=== PATIENT | male | born 1955 | race Caucasian/White ===

== ENCOUNTER 2020-08-13 14:15 | Emergency (ER) | payer OTHER ==
[2020-08-13] MEDS ORDERED: SODIUM CHLORIDE 0.9% 1,000 ML IV STA (14:32)
[2020-08-13] MEDS ORDERED: METOCLOPRAMIDE 10 MG/2 ML VIAL IVP STA (14:32)
--- NOTE | 2020-08-13 14:32 | ED Physician Documentation ---
PD HPI ABD PAIN - Stated complaint Stated Complaint: VOMITING/NAUSEA - Chief complaint Chief Complaint: Abd Pain - History obtained from History obtained from: Patient - Additional information Additional information: 64-year-old gentleman with recent diagnosis of non-small cell lung cancer started chemotherapy 4 days ago. Over the last 2 days he has had severe nausea and vomiting despite Compazine and Zofran orally. There is really not much pain. There is no blood in the vomitus. He hasn't had a bowel movement in a few days but doesn't feel like he is constipated, just that there is nothing in him. No fevers. Review of Systems Ten Systems: 10 systems reviewed and negative Constitutional: reports: Fatigue Cardiac: denies: Chest pain / pressure, Palpitations Respiratory: denies: Dyspnea, Cough PD PAST MEDICAL HISTORY - Present Medications Home Medications: Ambulatory Orders Medication Instructions Recorded Confirmed Metoclopramide [Reglan] 10 mg PO Q6H PRN #20 tablet 08/13/20 Ondansetron Odt [Zofran Odt] 8 mg PO Q6HR 08/13/20 08/13/20 Prochlorperazine Maleate 10 mg PO Q6HR 08/13/20 08/13/20 [Compazine] - Allergies Allergies/Adverse Reactions: Allergies Allergy/AdvReac Type Severity Reaction Status Date / Time No Known Drug Allergies Allergy Verified 08/13/20 14:25 PD ED PE NORMAL - Vitals Vital signs reviewed: Yes - General General: Alert and oriented X 3, No acute distress - HEENT HEENT: Pharynx benign - Neck Neck: Supple, no meningeal sign, No bony TTP - Cardiac Cardiac: RRR, No murmur - Respiratory Respiratory: No respiratory distress, Clear bilaterally - Abdomen Abdomen: Non tender - Back Back: No CVA TTP, No spinal TTP - Derm Derm: Normal color, Warm and dry - Extremities Extremities: No edema, No calf tenderness / cord - Neuro Neuro: Alert and oriented X 3, Normal speech Results - Vitals Vitals: Vital Signs - 24 hr 08/13/20 08/13/20 14:18 15:51 Temperature 35.8 C L Heart Rate 73 61 Respiratory 16 15 Rate Blood Pressure 130/80 128/86 H O2 Saturation 99 97 Oxygen O2 Source Room air - Labs Labs: Laboratory Tests 08/13/20 08/13/20 15:15 15:15 WBC 8.2 RBC 5.47 Hgb 15.8 Hct 46.7 MCV 85.4 MCH 28.9 MCHC 33.8 RDW 12.6 Plt Count 260 MPV 9.7 Neut # (Auto) 6.6 Lymph # (Auto) 1.1 L [place] # (Auto) 0.4 Eos # (Auto) 0.0 Baso # (Auto) 0.0 Absolute Nucleated RBC 0.00 Nucleated RBC % 0.0 Sodium 136 Potassium 3.9 Chloride 96 L Carbon Dioxide 26 Anion Gap 14.0 H BUN 23 H Creatinine 0.8 Estimated GFR (MDRD) 97 Glucose 116 H Calcium 9.9 Magnesium 2.1 Total Bilirubin 1.0 AST 23 ALT 28 Alkaline Phosphatase 103 Total Protein 8.0 Albumin 4.6 Globulin 3.4 Albumin/Globulin Ratio 1.4 PD MEDICAL DECISION MAKING - ED course ED course: With chemotherapy related nausea and vomiting. He was doing much better here after some IV fluids and Reglan. No major abnormal findings on labs. Departure - Departure Disposition: 01 Home, Self Care Clinical Impression: Vomiting due to chemotherapy Condition: Good Record reviewed to determine appropriate education?: Yes Instructions: ED Nausea Vomiting Prescriptions: Metoclopramide [Reglan] 10 mg PO Q6H PRN #20 tablet PRN Reason: nausea or headache Comments: Follow-up with your oncologist, next available appointment. Return as needed if worse.
[2020-08-13 15:22] LABS: BASOPHILS % (AUTO) 0.1 %; EOSINOPHILS % (AUTO) 0.4 %; HGB - HEMOGLOBIN 15.8 g/dL (14.0-18.0); LYMPHOCYTES # (AUTO) 1.1 10^3/uL (1.5-3.5); LYMPHOCYTES % (AUTO) 13.2 %; MEAN CORPUSCULAR HEMOGLOBIN 28.9 pg (27.0-31.0); MEAN CORPUSCULAR HGB CONC 33.8 g/dL (32.0-36.0); MEAN CORPUSCULAR VOLUME 85.4 fL (80.0-94.0); MEAN PLATELET VOLUME 9.7 fL (7.4-11.4); MONOCYTES # (AUTO) 0.4 10^3/uL (0.0-1.0); MONOCYTES % (AUTO) 5.3 %; NEUTROPHILS # (AUTO) 6.6 10^3/uL (1.5-6.6); NEUTROPHILS % (AUTO) 80.6 %; PLT - PLATELET COUNT 260 10^3/uL (130-450); RED BLOOD COUNT 5.47 10^6/uL (4.70-6.10); RED CELL DISTRIBUTION WIDTH 12.6 % (12.0-15.0); WHITE BLOOD COUNT 8.2 x10^3/uL (4.8-10.8)
[2020-08-13 15:38] LABS: ALBUMIN 4.6 g/dL (3.2-5.5); ALBUMIN/GLOBULIN RATIO 1.4 (1.0-2.2); CALCIUM 9.9 mg/dL (8.5-10.3); CREATININE 0.8 mg/dL (0.6-1.2); MAGNESIUM 2.1 mg/dL (1.7-2.8)
[2020-08-13 15:52] VITALS: BP 128/86
== END 2020-08-13 16:05 | disposition home or self-care (01) ==
LOC: ED 14:15
DX: R11.2 Nausea with vomiting, unspecified (principal); T45.1X5A Adverse effect of antineoplastic and immunosuppressive drugs, initial encounter; C34.90 Malignant neoplasm of unspecified part of unspecified bronchus or lung
CPT/HCPCS: 36415; 80053; 83735; 85025; 96374; 99283; 99284; J2765

== ENCOUNTER 2021-02-20 19:11 | Emergency (ER) | payer MEDICARE, OTHER ==
--- NOTE | 2021-02-20 19:31 | ED Physician Documentation ---
PD HPI FEVER - Stated complaint Stated Complaint: NAUSEA/FEVER/VOMITING - Chief complaint Chief Complaint: Abd Pain - History obtained from History obtained from: Patient, Family - History of Present Illness Timing - onset: Enter time (03:00), Today Timing details: Gradual onset Associated symptoms: Chills, Dry cough, Dyspnea, NVD. 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 His most recent chemotherapy treatment was 02/18. He is COVID vaccinated. He uses 2 liters [place] oxygen at home. Past three days, he has had nausea, vomiting, chills, increased cough and dyspnea from baseline. He couldnt find a working thermometer until this evening and had measured temperature of 102 and thus comes to ED. His oncologist is Dr. Deras at [facility]. Review of Systems Constitutional: reports: Fever, Chills Nose: reports: Reviewed and negative Throat: reports: Reviewed and negative Cardiac: reports: Reviewed and negative GI: reports: Nausea, Vomiting. denies: Abdominal Pain, Abdominal Swelling, Constipation, Diarrhea : denies: Dysuria, Frequency Skin: denies: Rash PD PAST MEDICAL HISTORY - Past Medical History Cardiovascular: None Respiratory: None Neuro: None Endocrine/Autoimmune: None GI: None : None HEENT: None Psych: None Musculoskeletal: None Derm: None - Present Medications Home Medications: Ambulatory Orders Medication Instructions Recorded Confirmed Apixaban [Eliquis] 2 tab PO DAILY 02/20/21 02/20/21 Atorvastatin [Lipitor] 4 tab DAILY 02/20/21 02/20/21 Fluoxetine HCl [Prozac] 1 cap BID 02/20/21 02/20/21 Lisinopril [Zestril] 10 mg PO DAILY 02/20/21 02/20/21 Oxycodone HCl/Acetaminophen 1 each PO Q6H 02/20/21 02/20/21 [Percocet 5-325 mg Tablet] traMADol [Ultram] 1 tab PO PRN PRN 02/20/21 02/20/21 - Allergies Allergies/Adverse Reactions: Allergies Allergy/AdvReac Type Severity Reaction Status Date / Time No Known Drug Allergies Allergy Verified 02/20/21 19:25 - Social History Does the pt smoke?: No Smoking Status: Never smoker PD ED PE NORMAL - Vitals Vital signs reviewed: Yes - General General: Alert and oriented X 3, No acute distress, Well developed/nourished - HEENT HEENT: Moist mucous membranes - Neck Neck: Supple, no meningeal sign - Respiratory Respiratory: No respiratory distress - Abdomen Abdomen: Soft, Non tender PD ED PE EXPANDED - Cardiac Cardiac: Tachy, Irregularly irregular - Respiratory Respiratory: Decreased breath sounds, Left upper lobe Results - Vitals Vitals: Oxygen O2 Source Room air Oxygen Flow Rate 2 - Labs Labs: Microbiology 02/20/21 19:50 Blood Culture - Preliminary Blood NO GROWTH AFTER 1 DAY 02/20/21 19:43 Blood Culture - Preliminary Blood - Left Arm NO GROWTH AFTER 1 DAY Laboratory Tests 02/20/21 02/20/21 02/20/21 19:43 19:50 19:50 WBC 7.0 RBC 3.43 L Hgb 9.9 L Hct 29.9 L MCV 87.2 MCH 28.9 MCHC 33.1 RDW 17.4 H Plt Count 372 MPV 8.9 Neut # (Auto) 6.5 Lymph # (Auto) 0.2 L [place] # (Auto) 0.1 Eos # (Auto) 0.0 Baso # (Auto) 0.0 Absolute Nucleated RBC 0.00 Nucleated RBC % 0.0 Sodium 130 L Potassium 3.9 Chloride 90 L Carbon Dioxide 27 Anion Gap 13.0 BUN 15 Creatinine 0.7 Estimated GFR (MDRD) 113 Glucose 131 H Lactic Acid 1.4 Calcium 9.0 Total Bilirubin 1.0 AST 32 ALT 41 Alkaline Phosphatase 74 Total Protein 7.1 Albumin 3.4 Globulin 3.7 Albumin/Globulin Ratio 0.9 L Urine Color Urine Clarity Urine pH Ur Specific [place] Urine Protein Urine Glucose (UA) Urine Ketones Urine Occult Blood Urine Nitrite Urine Bilirubin Urine Urobilinogen Ur Leukocyte Esterase Urine RBC Urine WBC Ur Squamous Epith Cells Urine Bacteria Urine Mucus Urine Culture Comments Nasal Adenovirus (PCR) Nasal B. parapertussis DNA (PCR) Nasal Coronavir 229E PCR Nasal Coronavir HKU1 PCR Nasal Coronavir NL63 PCR Nasal Coronavir OC43 PCR Nasal Enterovir/Rhinovir PCR Nasal Influenza B PCR Nasal Influenza A PCR Nasal Parainfluen 1 PCR Nasal Parainfluen 2 PCR Nasal Parainfluen 3 PCR Nasal Parainfluen 4 PCR Nasal RSV (PCR) Nasal B.pertussis DNA PCR Nasal C.pneumoniae (PCR) Wally Human Metapneumo PCR Nasal M.pneumoniae (PCR) Nasal SARS-CoV-2 (PCR) 02/20/21 02/20/21 20:02 20:20 WBC RBC Hgb Hct MCV MCH MCHC RDW Plt Count MPV Neut # (Auto) Lymph # (Auto) [place] # (Auto) Eos # (Auto) Baso # (Auto) Absolute Nucleated RBC Nucleated RBC % Sodium Potassium Chloride Carbon Dioxide Anion Gap BUN Creatinine Estimated GFR (MDRD) Glucose Lactic Acid Calcium Total Bilirubin AST ALT Alkaline Phosphatase Total Protein Albumin Globulin Albumin/Globulin Ratio Urine Color DARK YELLOW Urine Clarity CLEAR Urine pH 7.5 Ur Specific [place] 1.015 Urine Protein 30 H Urine Glucose (UA) NEGATIVE Urine Ketones NEGATIVE Urine Occult Blood NEGATIVE Urine Nitrite NEGATIVE Urine Bilirubin NEGATIVE Urine Urobilinogen 4 H Ur Leukocyte Esterase NEGATIVE Urine RBC None Seen Urine WBC 0-3 Ur Squamous Epith Cells NONE SEEN Urine Bacteria None Seen Urine Mucus Few Strands Urine Culture Comments NOT INDICATED Nasal Adenovirus (PCR) NOT DETECTED Nasal B. parapertussis DNA (PCR) NOT DETECTED Nasal Coronavir 229E PCR NOT DETECTED Nasal Coronavir HKU1 PCR NOT DETECTED Nasal Coronavir NL63 PCR NOT DETECTED Nasal Coronavir OC43 PCR NOT DETECTED Nasal Enterovir/Rhinovir PCR NOT DETECTED Nasal Influenza B PCR NOT DETECTED Nasal Influenza A PCR NOT DETECTED Nasal Parainfluen 1 PCR NOT DETECTED Nasal Parainfluen 2 PCR NOT DETECTED Nasal Parainfluen 3 PCR NOT DETECTED Nasal Parainfluen 4 PCR NOT DETECTED Nasal RSV (PCR) NOT DETECTED Nasal B.pertussis DNA PCR NOT DETECTED Nasal C.pneumoniae (PCR) NOT DETECTED Wally Human Metapneumo PCR NOT DETECTED Nasal M.pneumoniae (PCR) NOT DETECTED Nasal SARS-CoV-2 (PCR) NOT DETECTED - Rads (name of study) chest xray Radiology: Prelim report reviewed, Final report received, EMP read contemporaneously, See rad report PD MEDICAL DECISION MAKING - ED course Complexity details: reviewed results, re-evaluated patient, considered differential, d/w patient ED course: presents with nausea, vomiting which resolved after IV zofran in ED. He is also given tylenol for fever and one liter NS infused IV to replete losses from reported nausea and vomiting. His labs are reassuring; he has a normal WBC without neutropenia, hgb 9.9, normal kidney function tests and electrolytes, unremarkable UA, negative respiratory PCR swab including COVID, and no acute process on CXR (left upper lobe mass is known, per patient). Thus no source for his fever is found, and on reevaluation, he says he feels well and is comfortable with discharge home. I discussed the case with his oncologist, Dr. Deras, and she agrees with d/c at this time without specific intervention such as antibiotics. Departure - Departure Disposition: 01 Home, Self Care Clinical Impression: Fever Qualifiers: Fever type: unspecified Qualified Code(s): R50.9 - Fever, unspecified Condition: Good Instructions: ED Fever Unconf Cause Follow-Up: Juan Pablo Ford MD [Primary Care Provider] - Discharge Date/Time: 02/20/21 23:30
[2021-02-20 20:10] LABS: BASOPHILS % (AUTO) 0.3 %; EOSINOPHILS % (AUTO) 0.1 %; HCT - HEMATOCRIT 29.9 % (42.0-52.0); HGB - HEMOGLOBIN 9.9 g/dL (14.0-18.0); LYMPHOCYTES # (AUTO) 0.2 10^3/uL (1.5-3.5); LYMPHOCYTES % (AUTO) 3.4 %; MEAN CORPUSCULAR HEMOGLOBIN 28.9 pg (27.0-31.0); MEAN CORPUSCULAR HGB CONC 33.1 g/dL (32.0-36.0); MEAN CORPUSCULAR VOLUME 87.2 fL (80.0-94.0); MEAN PLATELET VOLUME 8.9 fL (7.4-11.4); MONOCYTES # (AUTO) 0.1 10^3/uL (0.0-1.0); NEUTROPHILS # (AUTO) 6.5 10^3/uL (1.5-6.6); NEUTROPHILS % (AUTO) 93.9 %; PLT - PLATELET COUNT 372 10^3/uL (130-450); RED BLOOD COUNT 3.43 10^6/uL (4.70-6.10); RED CELL DISTRIBUTION WIDTH 17.4 % (12.0-15.0)
[2021-02-20 20:12] LABS: ALBUMIN 3.4 g/dL (3.2-5.5); ALBUMIN/GLOBULIN RATIO 0.9 (1.0-2.2); CREATININE 0.7 mg/dL (0.6-1.2); POTASSIUM 3.9 mmol/L (3.5-5.0); TOTAL PROTEIN 7.1 g/dL (6.7-8.2)
[2021-02-20 20:32] LABS: BILIRUBIN,URINE NEGATIVE (NEGATIVE); GLUCOSE, URINE (UA) NEGATIVE (NEGATIVE); KETONES,URINE (UA) NEGATIVE (NEGATIVE); LEUKOCYTE ESTERASE, URINE NEGATIVE (NEGATIVE); NITRITE,URINE NEGATIVE (NEGATIVE); OCCULT BLOOD,URINE NEGATIVE (NEGATIVE); PH,URINE 7.5 PH (5.0-7.5); PROTEIN,URINE 30 mg/dL (NEGATIVE); UROBILINOGEN,URINE 4 E.U./dL (NORMAL)
[2021-02-20 20:33] LABS: CLARITY,URINE CLEAR (CLEAR)
[2021-02-20] MEDS ORDERED: ONDANSETRON 4 MG/2 ML VIAL IVP STA (20:37)
[2021-02-20] MEDS ORDERED: ACETAMINOPHEN 325 MG TABLET PO STA (20:37)
[2021-02-20] MEDS ORDERED: SODIUM CHLORIDE 0.9% 1,000 ML IV STA (20:37)
[2021-02-20 20:45] LABS: BACTERIA,URINE None Seen /HPF (None Seen); MUCUS,URINE Few Strands; RBC,URINE None Seen /HPF (0-5); SQUAMOUS EPITHELIAL CELL,UR NONE SEEN (<= Few); WBC,URINE 0-3 /HPF (0-3)
[2021-02-20 21:03] LABS: B. PARAPERTUSSIS- RESP PCR PAN NOT DETECTED; B. PERTUSSIS- RESP PCR PANEL NOT DETECTED; C. PNEUMONIAE- RESP PCR PANEL NOT DETECTED; CORONAVIRUS 229E-RESP PCR NOT DETECTED; CORONAVIRUS HKU1-RESP PCR NOT DETECTED; CORONAVIRUS NL63-RESP PCR NOT DETECTED; CORONAVIRUS OC43-RESP PCR NOT DETECTED; HUMAN METAPNEUMOVIRUS NOT DETECTED; INFLUENZA A- RESP PCR PANEL NOT DETECTED; INFLUENZA B - RESP PCR PANEL NOT DETECTED; M. PNEUMONIAE- RESP PCR PANEL NOT DETECTED; PARAINFLUENZA VIRUS 1 NOT DETECTED; PARAINFLUENZA VIRUS 2 NOT DETECTED; PARAINFLUENZA VIRUS 3 NOT DETECTED; PARAINFLUENZA VIRUS 4 NOT DETECTED; RHINOVIRUS/ENTEROVIRUS NOT DETECTED; RSV- RESP PCR PANEL NOT DETECTED; SARS-CoV-2 -RESP PCR PANEL NOT DETECTED
--- NOTE | 2021-02-20 21:04 | XRAY Report ---
PROCEDURE: Chest 2 View X-Ray INDICATIONS: cough, fever, dyspnea TECHNIQUE: 2 view(s) of the chest. COMPARISON: None. FINDINGS: Surgical changes and devices: Port-A-Cath right upper hemithorax, with tip extending into the distal SVC. Lungs and pleura: No pleural effusions or pneumothorax. Lungs are abnormal, with a mass lesion at t he left upper lobe contiguous with the aortic arch area, and generalized interstitial prominence bila terally, chronicity uncertain given the absence of comparison studies. There is elevation of the left hemidiaphragm, no subdiaphragmatic free air is seen.. Mediastinum: Mediastinal contours are normal. Heart size is normal. Bones and chest wall: No suspicious bony abnormalities. Soft tissues appear unremarkable. IMPRESSION: Large likely malignant mass left upper lobe. Interstitial prominence through the lung pa renchyma elsewhere bilaterally, perhaps reflecting a long-standing smoking history. Elevated left hem idiaphragm, chronicity uncertain as discussed given the absence of comparison studies. Port-A-Cath fr om a right-sided approach extends normally into the distal SVC. Reviewed by: Chang Cruz MD on 02/20/2021 9:03 PM PDT Approved by: Chang Cruz MD on 02/20/2021 9:03 PM PDT Station ID: [id number]
[2021-02-20 23:11] VITALS: BP 118/79
== END 2021-02-20 23:30 | disposition home or self-care (01) ==
LOC: ED 19:11
DX: R50.9 Fever, unspecified (principal); R11.2 Nausea with vomiting, unspecified; C34.90 Malignant neoplasm of unspecified part of unspecified bronchus or lung; C79.51 Secondary malignant neoplasm of bone; Z99.81 Dependence on supplemental oxygen; Z79.01 Long term (current) use of anticoagulants; Z79.891 Long term (current) use of opiate analgesic; Z79.899 Other long term (current) drug therapy; Z20.822 Contact with and (suspected) exposure to COVID-19
CPT/HCPCS: 36415; 71046; 80053; 81001; 83605; 85025; 87040; 87631; 96374; 99284; 99285; A9270; 0202U; 87086